=== PATIENT | male | born 1965 | race Caucasian/White ===

== ENCOUNTER → 2016-10-21 | Outpatient (REF) ==
[~2016-10-21] MED LIST: ADVIL200 MG PO; AMBIEN 10MG10 MG PO; KLONOPIN 0.5MG0.5 MG PO; LEXAPRO 5MG5 MG PO; NORCO 325 MG-7.1 TAB PO; SYNTHROID0.137 MG PO; TAMIFLU 75MG75 MG PO; VOLTAREN-XR100 MG PO
[2016-10-21 18:49] LABS: PSA-TOTAL 0.38 ng/mL (0-4)
[2016-10-21 19:29] LABS: THYROID STIMULATING HORMONE 3.41 uIU/mL (0.465-4.680)
== END ==
LOC: ZLAB.WCH 17:53
PROVIDERS: Internal Medicine
DX: Z01.89 Encounter for other specified special examinations (principal)
CPT/HCPCS: G0103

== ENCOUNTER → 2018-02-17 | Outpatient (REF) ==
[2018-02-17 15:57] LABS: PSA-TOTAL 0.37 ng/mL (0-4)
[2018-02-17 15:58] LABS: THYROID STIMULATING HORMONE 3.68 uIU/mL (0.465-4.680)
== END ==
LOC: ZLAB.WCH 14:54
PROVIDERS: Internal Medicine
DX: Z01.89 Encounter for other specified special examinations (principal)
CPT/HCPCS: G0103

== ENCOUNTER 2018-08-07 07:24 | Day surgery (SDC) | payer BC ==
[~2018-08-07] VITALS: Ht 188 cm; Wt 189.0 kg
[2018-08-07 08:10] VITALS: BP 145/70; PULSE 61; TEMP 98.4
[2018-08-07] MEDS ORDERED: ULTRAM 50MG TAB50 MG PO (08:24)
[2018-08-07 11:15] VITALS: BP 118/57; PULSE 82; TEMP 98.2
[2018-08-07 11:30] VITALS: BP 115/64; PULSE 82
[2018-08-07 11:45] VITALS: BP 131/69; PULSE 85
== END 2018-08-07 14:00 | disposition home or self-care (01) ==
LOC: SDCO 07:24
DX: K80.10 Calculus of gallbladder with chronic cholecystitis without obstruction (principal); E66.01 Morbid (severe) obesity due to excess calories; Z68.43 Body mass index [BMI] 50.0-59.9, adult; Z79.899 Other long term (current) drug therapy; I10 Essential (primary) hypertension; G47.33 Obstructive sleep apnea (adult) (pediatric); E07.9 Disorder of thyroid, unspecified; F41.9 Anxiety disorder, unspecified
CPT/HCPCS: J1100; J1170; J2405; J2550; J2704; J2710; J2765; J3010; J7120